=== PATIENT | female | born 1935 | race Caucasian/White ===

== ENCOUNTER 2023-05-20 19:35 | Outpatient (CLI) | payer MEDICARE ==
--- NOTE | 2023-05-22 08:54 | SLS ---
SLEEP STUDY This study is a screening polysomnography. HISTORY OF PRESENT ILLNESS: An 87-year-old female patient referred to me for concerns of sleep apnea. She was diagnosed having ANIBAL more than 20 years ago in an [facility] and she was given a CPAP machine at a pressure of 11 cm of water. She quit treatment approximately 3 years ago and over the past 3 years, she has not been using the machine. Note that over the past 5 to 10 years, the patient has also lost a considerable amount of weight. She is fatigued and sleepy and tired and the patient is insisted in going back on her CPAP machine PERTINENT PHYSICAL FINDINGS: Height is 5 feet 0 inches. Weight is 138 and body mass index of 27. TECHNICAL DESCRIPTION: The sleep evaluation of the patient consisted of clinical polysomnography, nocturnal respiratory battery, left and right anterior tibialis surface electromyography. The standard montage for the clinical polysomnography included the EEG, EOG, EMG, and EKG. Respiratory battery included measurements of nasal/buccal airflow, thoracic, and/or abdominal effort and intercostal surface EMG. Nocturnal oxyhemoglobin saturations were obtained by finger oximetry. Digital video and audio monitoring were done throughout the entire night to check or parasomnias. SLEEP ARCHITECTURE: The total time in bed was 408.5 minutes. Total sleep time was 153.0 minutes and sleep efficiency was calculated to be at 61.9%. Latency to sleep onset was 9 minutes. Latency to REM sleep was 282 minutes and the patient's sleep architecture was characterized by 17.2% stage I, 71.5% stage II, 0.8% stage III, and 10.5% REM sleep. The total arousal index was 30.1. Wake after sleep onset time was 146. RESPIRATORY ANALYSIS: There was a total of 52 obstructive events, of which 47 were obstructive apneas, 0 mixed apneas, 5 were obstructive hypopneas and the resulting AHI was 11.6. Central apnea index was 0. OXYGENATION ANALYSIS: The patient average pulse ox while awake was 95%. Lowest pulse ox during the sleep study was 90% and the minimum pulse ox during REM sleep was 91%. The patient managed to maintain a pulse ox of above 90% throughout the sleep study. PERIODIC LIMB MOVEMENT ANALYSIS: There was a total of 155 periodic limb movement activity with an index of 36.8, not causing any significant arousals. SLEEP CONTINUITY SUMMARY: There was a total of 127 arousals with an index of 30.1. Respiratory arousal index was 7.8. CARDIAC SUMMARY: Average heart rate was 60, minimum heart rate was 56, maximum heart rate was 67. ASSESSMENT: 1. Mild obstructive sleep apnea with an AHI of 11.6, worse during REM sleep with an AHI during REM being at 20.4. 2. Mild nocturnal oxygen desaturation secondary to above. 3. Periodic limb movement activity, not causing any sleep fragmentation. 4. Poor ability for sleep maintenance with a total arousal index of 30.1. PLAN: The patient will benefit from CPAP therapy. The patient will be asked to come into the sleep center to undergo a CPAP titration with subsequent CPAP therapy once the titration is completed. MMODL / IJN: [id number] /
== END 2023-05-21 06:00 | disposition home or self-care (01) ==
LOC: 3 N SLEEP 19:35
PROVIDERS: ATTEND Internal Medicine Critical Care Medicine
DX: G47.33 Obstructive sleep apnea (adult) (pediatric) (principal); G47.34 Idiopathic sleep related nonobstructive alveolar hypoventilation; G47.61 Periodic limb movement disorder; G47.52 REM sleep behavior disorder
CPT/HCPCS: 95810

== ENCOUNTER 2023-08-13 19:27 | Outpatient (CLI) | payer MEDICARE, BC ==
--- NOTE | 2023-08-25 18:10 | P.PCN ---
Date of Procedure: 08/13/23 Operative Findings: CPAP titration report Date of services 08/13/2023 Pertinent history 88-year-old female patient who has been diagnosed having obstructive sleep apnea more than 20 years ago maintained on CPAP therapy pressure of 11 cm of water. The patient presented to me for evaluation following losing weight. A polysomnography was done and the patient was found to have mild obstructive sleep apnea with an AHI of 11.6 worse during REM sleep and AHI during REM was 20.4. The patient also encountered mild nocturnal oxygen saturation. The patient had poor ability to maintain sleep and a total arousal index of 30.1.. As such, CPAP titration was recommended Pertinent physical findings the patient's height is 5 feet weight is 138 pounds with a body mass index of 27 Technical description The patient was studied using a standard complex polysomnography protocol that included recording of the 2 EKG, Central, occipital and frontal EEG, right and left outer canthus EOG, submental EMG, right and left anterior tibialis EMG, respiratory airflow by thermocouple and or pressure/flow transducer, respiratory efforts by abdominal and thoracic PVDF belts, oxygen saturation by cable oximetry. Position by observation synchronized the PSG. Stepwise CPAP titration was done to eliminate obstructive respiratory events.. Equipment used: [employer]. Sleep architecture \The total recording duration was 414 minutes. The total sleep time was 258.5 minutes. The latency to sleep onset was 8.5 minutes. The sleep architecture was characterized by 14.9% stage I, 60.2% stage II, 9.3% stage III, and 15.7% REM sleep. The total arousal index was 18.5. The wake after sleep onset time was 140.5 minutes. Respiratory analysis The patient was started on CPAP therapy initially at a pressure of 5 cm of water and pressure was gradually increased by increments of 1 cm to reach a maximum pressure of 12 cm of water. The patient was also given a trial of BiPAP. I carefully reviewed CPAP titration taken, the patient's sleep stage and body position. As noted the patient was effectively treated on CPAP therapy and this was noted to various body positions and various sleep stages. Noted the patient brief REM. Nevertheless, the treatment was effective with CPAP therapy. The maximum CPAP pressure achieved during this current titration was 13 cm of water. I am going to start the patient on a APAP at pressures of 7/12 cm of water. The patient should be able to effectively eliminate obstructive respiratory events at this pressure range and very sleep stage and body position. There was also completed ablation of the oxygen saturations while being on CPAP therapy Periodic abnormal activity The patient had a total of 208 periodic limb movement activity with an index of 48.3. Periodic limb movements with arousals were 11 with index of 2.6 Cardiac summary Average heart rate was 59 with a minimum heart rate of 52 and a maximum heart rate of 65 Arousal events There were a total of 78 arousals with an index of 18.1. Respiratory arousal index was 2.8 Assessment Symptomatic ANIBAL with an AHI of 11.6 worse during REM sleep with an AHI of 20.4 during REM. Patient underwent successful CPAP titration. Poor sleep efficiency calculated to be in the order of 62.4%. Excessive periodic limb movement activity, not causing significant sleep fragmentation Improved respiratory maintenance and significant drop in the respiratory arousals while being on CPAP therapy Plan Initiate CPAP therapy at the pressures of 7/12 cm of water, APAP mode. The patient is going to be provided a medium size AirFit F20 fullface mask. The patient will see me back in follow-up in 30 to 90 days to assess clinical response and compliancy will continue to follow.
== END 2023-08-14 06:23 | disposition home or self-care (01) ==
LOC: 3 N SLEEP 19:27
PROVIDERS: ATTEND Internal Medicine Critical Care Medicine
DX: G47.33 Obstructive sleep apnea (adult) (pediatric) (principal); G47.61 Periodic limb movement disorder; G47.52 REM sleep behavior disorder
CPT/HCPCS: 95811